=== PATIENT | male | born 1980 | race Caucasian/White ===

== ENCOUNTER 2016-09-06 07:37 | Day surgery (SDC) | payer OTHER ==
--- NOTE | ~2016-09-06 | EGD ---
EGD REPORT [facility] [address] [address] NAME: DOUG HUNT : [birth year] STATUS : [facility] PAT#: [id number] AGE: 36 ADM/REG DATE : 09/06/16 MR#: [id number] REPORT SERV DATE: 09/06/16 DICTATED BY: ANNIE TOM DATE: 09/06/16 REPORT STATUS : Draft TRANSCRIBED BY: [facility] DATE: 09/06/16 [facility] Center Patient Name: Doug Hunt Date of : 1980 Attending MD: ANNIE TOM MD Procedure Date No Time: 09/06/2016 Procedure: Upper GI endoscopy Indications: Dysphagia, Heartburn, Suspected esophageal reflux Referring MD: Kalpesh PENA MD Medicines: as per anesthesia Complications: No immediate complications. Procedure: Pre-Anesthesia Assessment: - ASA Grade Assessment: II - A patient with mild systemic disease. After obtaining informed consent, the endoscope was passed under direct vision. Throughout the procedure, the patient's blood pressure, pulse, and oxygen saturations were monitored continuously. The GIF [id number] was introduced through the mouth, and advanced to the third part of duodenum. The upper GI endoscopy was accomplished without difficulty. The patient tolerated the procedure. Findings: A mild Schatzki ring (acquired) was found at the gastroesophageal junction. A guidewire was placed under fluoroscopic guidance and the scope was withdrawn. Dilation was performed with a Savary dilator with no resistance at 45 Fr. The entire examined stomach was normal. The cardia and gastric fundus were normal on retroflexion. The examined duodenum was normal. Impression: - Mild Schatzki ring. Dilated. - Normal stomach. - Normal examined duodenum. Recommendation: - Follow an antireflux regimen. - Continue present medications. Procedure Code(s): --- Professional --- 74266, Esophagogastroduodenoscopy, flexible, transoral; with insertion of guide wire followed by passage of dilator(s) through esophagus over guide wire Diagnosis Code(s): --- Professional --- EGD REPORT [place] [address] [address] NAME: DOUG HUNT : [birth year] STATUS : [facility] PAT#: [id number] AGE: 36 ADM/REG DATE : 09/06/16 MR#: [id number] REPORT SERV DATE: 09/06/16 DICTATED BY: ANNIE TOM. DATE: 09/06/16 REPORT STATUS : Draft TRANSCRIBED BY: [employer] DATE: 09/06/16 K22.2, Esophageal obstruction R13.10, Dysphagia, unspecified R12, Heartburn CPT copyright 2013 [employer] [employer]. All rights reserved. The codes documented in this report are preliminary and upon retail chain store area supervisor review may be revised to meet current compliance requirements. ANNIE TOM MD 09/06/2016 9:44 AM This report has been signed electronically. Number of Addenda: 0 Note Initiated On: 09/06/2016 9:15 AM [facility] [id number]
[~2016-09-06 07:37] MED LIST: ADDER10 PO; ADDERALL20 MG PO; AMB5 PO; PREV30 PO; PROAIR HFA INH; ZYRTEC ALLGY10 MG PO
== END 2016-09-06 23:59 | disposition home health service (06) ==
LOC: DMU 07:37
PROVIDERS: Internal Medicine Gastroenterology
PROC: 0D748ZZ Dilation of Esophagogastric Junction, Via Natural or Artificial Opening Endoscopic (ICD-10-PCS; principal; 2016-09-06 10:00)
DX: K22.2 Esophageal obstruction (principal); J45.909 Unspecified asthma, uncomplicated; K21.9 Gastro-esophageal reflux disease without esophagitis; F98.8 Other specified behavioral and emotional disorders with onset usually occurring in childhood and adolescence; Z88.8 Allergy status to other drugs, medicaments and biological substances; Z98.890 Other specified postprocedural states
CPT/HCPCS: 76000; J2250